=== PATIENT | female | born 1985 | race Caucasian/White ===

== ENCOUNTER 2017-03-02 19:19 | Inpatient (IN) | payer OTHER ==
[~2017-03-02 19:19] MED LIST: IRON325 ( 65 ); MOTRIN600 MG PO; NORCO 5/325 TAB1 TAB PO; PRENATAL1 EACH; TUMS ULTRA1000 M1
[2017-03-02 19:55] LABS: BASO % 0.2 % (0-2); EOS % 0.6 % (0-7); EOSINOPHIL ABSOLUTE COUNT 0.1 tho/cmm (0.0-0.7); HCT-HEMATOCRIT 32.1 % (34.0-49.0); HGB-HEMOGLOBIN 10.2 gm/dl (12.0-15.5); IMMATURE GRANULOCYTES ABSOLUTE 0.11 tho/cmm (0-0.03); IMMATURE GRANULOCYTES PERCENT 0.9 % (0-0.3); LYMPH % 18.1 % (20-45); LYMPH ABSOLUTE COUNT 2.1 tho/cmm (0.8-4.5); MCH (MEAN CORPUSCULAR HGB) 24.4 pg (28.0-32.0); MCHC MEAN CORPUSCULAR HGB CONC 31.8 % (32.0-36.0); MCV (MEAN CELL VOLUME) 76.8 fl (82.0-96.0); MEAN PLATELET VOLUME 10.5 cmc (9.4-12.4); MONO % 5.5 % (0-12); MONOCYTE ABSOLUTE COUNT 0.7 tho/cmm (0.0-1.2); NEUTROPHIL ABSOLUTE COUNT 8.8 tho/cmm (1.6-8.0); NEUTROPHIL-AUTOMATED 8.8 tho/cmm (1.6-8.0); NEUTROPHILS % 74.7 % (40-80); PLATELET COUNT 229 tho/cmm (150-450); RED BLOOD COUNT 4.18 mil/cmm (4.00-5.20); RED CELL DISTRIBUTION WIDTH 15.5 % (12.4-16.4); WHITE BLOOD COUNT 11.8 tho/cmm (4.0-10.0)
[2017-03-02] MEDS ORDERED: VITAMIN D31000 UNI3 PO (20:22)
[2017-03-04 06:46] LABS: BASO % 0.2 % (0-2); EOSINOPHIL ABSOLUTE COUNT 0.1 tho/cmm (0.0-0.7); HCT-HEMATOCRIT 28.1 % (34.0-49.0); HGB-HEMOGLOBIN 8.7 gm/dl (12.0-15.5); IMMATURE GRANULOCYTES ABSOLUTE 0.06 tho/cmm (0-0.03); IMMATURE GRANULOCYTES PERCENT 0.5 % (0-0.3); LYMPH % 22.7 % (20-45); MCH (MEAN CORPUSCULAR HGB) 23.8 pg (28.0-32.0); MEAN PLATELET VOLUME 10.2 cmc (9.4-12.4); MONO % 7.6 % (0-12); NEUTROPHIL ABSOLUTE COUNT 8.9 tho/cmm (1.6-8.0); NEUTROPHIL-AUTOMATED 8.9 tho/cmm (1.6-8.0); PLATELET COUNT 163 tho/cmm (150-450); RED BLOOD COUNT 3.65 mil/cmm (4.00-5.20); RED CELL DISTRIBUTION WIDTH 15.7 % (12.4-16.4); WHITE BLOOD COUNT 13.1 tho/cmm (4.0-10.0)
[2017-03-05] MEDS ORDERED: NORCO 5-325 TA1 EACH PO (10:07)
[2017-03-05] MEDS ORDERED: IBUPROFEN800 M1 PO (10:08)
--- NOTE | 2017-03-10 16:34 | NUR ---
CONSULT 03/04/17 @1525: LEFT NIPPLE INVERTED, PATIENT REQUESTED NIPPLE SHIELD FOR THAT SIDE ONLY. 24MM NIPPLE SHIELD GIVEN. LATCHING TO RIGHT SIDE WITHOUT SHIELD.
== END 2017-03-05 12:35 | DRG 775 ==
LOC: LDR 19:19 → OBGE 03-03 20:16
PROVIDERS: ADMIT Specialist
PROC: 3E0P7GC Introduction of Other Therapeutic Substance into Female Reproductive, Via Natural or Artificial Opening (ICD-10-PCS; 2017-03-02)
PROC: 10E0XZZ Delivery of Products of Conception, External Approach (ICD-10-PCS; principal; 2017-03-03)
PROC: 10907ZC Drainage of Amniotic Fluid, Therapeutic from Products of Conception, Via Natural or Artificial Opening (ICD-10-PCS; 2017-03-03)
PROC: 0W8NXZZ Division of Female Perineum, External Approach (ICD-10-PCS; 2017-03-03)
DX: O80 Encounter for full-term uncomplicated delivery (principal); Z37.0 Single live birth; Z3A.39 39 weeks gestation of pregnancy
CPT/HCPCS: J2370; J2405; J2590